=== PATIENT | male | born 1995 | race Caucasian/White ===

== ENCOUNTER → 2020-10-09 | Outpatient (CLI) | payer BC ==
--- NOTE | 2020-10-11 08:22 | REP ---
INDICATION: RIGHT TESTICULAR PAIN R/O TORSION COMPARISON: None. TECHNIQUE: Sparks scale and color Doppler evaluation using linear and curved array transducer with color Doppler evaluation. FINDINGS: The testicles are relatively symmetric and normal in echotexture and vascularity without intratesticular mass lesion, infectious/inflammatory process, or torsion. Right testicle measures 5.3 x 2.7 x 4.0 cm. Left testicle measures 5.6 x 2.3 x 3.7 cm. Three right-sided epididymal cysts are identified measuring up to 9 x 7 x 6 mm and possibly related to patient's symptoms. Few right-sided varicoceles are also identified measuring up to approximately 3 mm diameter. No significant hydrocele. 4 mm left epididymal cyst identified. No left-sided varicoceles or significant hydrocele noted. IMPRESSION: 1. Relatively normal appearance of the bilateral testicles. 2. Right epididymal head cysts measuring up to 9 mm along with few right-sided varicoceles up to 3 mm diameter possibly related to patient's symptoms. <Electronically signed by Jeremias Hernandez > 10/11/20 [id number]
== END ==
LOC: M WHC 14:57
PROVIDERS: ATTEND Physician Assistant Medical
DX: N50.3 Cyst of epididymis (principal); N50.811 Right testicular pain

== ENCOUNTER 2020-12-04 21:15 | Emergency (ER) | payer BC ==
[~2020-12-04] VITALS: Ht 185.4 cm; Wt 77.2 kg
--- NOTE | 2020-12-04 22:38 | REPVR ---
PROCEDURE INFORMATION: Exam: XR Chest Exam date and time: 12/04/2020 10:14 PM Age: 25 years old Clinical indication: Chest tightness TECHNIQUE: Imaging protocol: XR of the chest Views: 2 views. COMPARISON: No relevant prior studies available. FINDINGS: Lungs: Unremarkable. No consolidation. No pulmonary edema. Pleural spaces: Unremarkable. No pleural effusion. No pneumothorax. Heart/Mediastinum: Unremarkable. No cardiomegaly. Bones/joints: Unremarkable. IMPRESSION: No acute findings. Electronically signed by: Isra Avitia On 12/04/2020 22:37:26 PM
[2020-12-04 22:48] LABS: HEMOGLOBIN 16.9 g/dl (13.5-17.5); MEAN CORPUSCULAR HEMOGLOBIN 28.9 pg (27.0-33.0); MEAN CORPUSCULAR HGB CONC 33.8 g/dl (32.0-36.5); MEAN CORPUSCULAR VOLUME 85.5 fl (80.0-96.0); PLATELET COUNT, AUTOMATED 207 10^3/uL (150-450); RED BLOOD COUNT 5.85 10^6/uL (4.30-6.10); WHITE BLOOD COUNT 8.9 10^3/uL (4.0-10.0)
[2020-12-04 23:10] LABS: AMPHETAMINES LEVEL URINE NEGATIVE (NEGATIVE); BARBITURATES URINE NEGATIVE (NEGATIVE); BENZODIAZEPINES URINE NEGATIVE (NEGATIVE); CANNABINOIDS URINE NEGATIVE (NEGATIVE); COCAINE METABOLITE URINE NEGATIVE (NEGATIVE); METHADONE URINE NEGATIVE (NEGATIVE); OPIATES URINE NEGATIVE (NEGATIVE); PHENCYCLIDINE URINE NEGATIVE (NEGATIVE)
[2020-12-04 23:27] LABS: ACETAMINOPHEN LEVEL < 2.0 UG/ML (10.0-30.0); ALBUMIN 4.3 GM/DL (3.2-5.2); ALT/SGPT 156 U/L (12-78); BILIRUBIN,DIRECT 0.2 MG/DL (0.0-0.2); BILIRUBIN,TOTAL 0.4 MG/DL (0.2-1.0); BLOOD UREA NITROGEN 20 MG/DL (7-18); CALCIUM LEVEL 8.6 MG/DL (8.5-10.1); CARBON DIOXIDE LEVEL 28 MEQ/L (21-32); CHLORIDE LEVEL 108 MEQ/L (98-107); CK-MB VALUE MASS 2.9 NG/ML (<3.6); CPK CREATINE PHOSPHOKINASE 912 U/L (39-308); CREATININE FOR GFR 1.34 MG/DL (0.70-1.30); ETHYL ALCOHOL (ETHANOL) 0.195 % (0.000-0.010); GLOMERULAR FILTRATION RATE > 60.0 (>60); GLUCOSE, FASTING 97 MG/DL (70-100); MB/CK RELATIVE INDEX 0.32 (< OR =4); POTASSIUM SERUM 4.3 MEQ/L (3.5-5.1); SALICYLATE LEVEL < 1.7 MG/DL (5.0-30.0); SODIUM LEVEL 142 MEQ/L (136-145); TOTAL PROTEIN 8.1 GM/DL (6.4-8.2); TROPONIN I < 0.02 NG/ML (< 0.10)
[2020-12-05 00:06] VITALS: BP 138/68
--- NOTE | 2020-12-05 05:53 | ECGEPIP ---
[facility] - ED Test Date: 2020-12-04 Pat Name: LEATHA COLINDRES Department: Room: - Gender: Male [employer] Dog Track: : 1995 Requested By: ARTUR Mayer Order Number: [id number] Reading MD: Remi Tompkins Measurements Intervals [place] Rate: 88 P: 59 MN: 154 QRS: 91 QRSD: 100 T: 60 QT: 362 QTc: 438 Interpretive Statements Normal sinus rhythm RIGHT AXIS DEVIATION NO PRIORS FOR COMPARISON Electronically Signed on 12-05-2020 5:53:38 EST by Remi Tompkins
== END 2020-12-05 00:08 | disposition home or self-care (01) ==
LOC: M ED 21:15
DX: F10.129 Alcohol abuse with intoxication, unspecified (principal); F41.9 Anxiety disorder, unspecified